=== PATIENT | female | born 1970 | race Caucasian/White ===

== ENCOUNTER → 2016-07-09 | Outpatient (CLI) | payer BC ==
--- NOTE | 2016-07-12 09:46 | MM ---
Reason for exam: screening (asymptomatic). Last mammogram was performed 1 year and 5 months ago. History: Took hormonal contraceptives for 16 years. Physical Findings: A clinical breast exam by your physician is recommended on an annual basis and results should be correlated with mammographic findings. MG 3D Screening Mammo W/Cad Bilateral CC and MLO view(s) were taken. Prior study comparison: January 24, 2015, bilateral MG 3d screening mammo w/cad. The breast tissue is heterogeneously dense. This may lower the sensitivity of mammography. There is no discrete abnormality. No significant changes when compared with prior studies. ASSESSMENT: Negative, BI-RAD 1 RECOMMENDATION: Routine screening mammogram of both breasts in 1 year.
== END | disposition home or self-care (01) ==
LOC: RADMAMWWP 16:47
PROVIDERS: ATTEND Family Medicine
DX: Z12.31 Encounter for screening mammogram for malignant neoplasm of breast (principal)
CPT/HCPCS: 77063; G0202

== ENCOUNTER → 2016-09-07 | Outpatient (CLI) | payer BC ==
--- NOTE | 2016-09-10 13:17 | CONS ---
Primary care physician is Dr. Chelo Pacheco A 45-year-old woman coming in because of loud snoring, waking up tired in the morning and frequent nocturnal arousals. She is suspected of having obstructive sleep apnea. She snores and she has been, at times told to stop breathing. She prefers to sleep on her side. She is a nose breather. She does not grind her teeth and she has occasional nocturnal heartburn. She has occasional nighttime sweating. She goes to bed around 8:00 p.m. and wakes up at 4:30 in the morning. On weekends she wakes up at 7:00 a.m. in the morning. She is averaging more than 6 hours of sleep every night. Her current [place] score is 15. Has not had any motor vehicle accidents because of feeling sleepy and tired. She has gained around 10 pounds over the past one year or so. No sleep paralysis, no hallucinations, no cataplexy. PAST MEDICAL HISTORY: Environmental allergies multiple including allergies to wheat, soy bailey, eggs, nuts, trees, grass, weeds, dust, cats, dogs, etc. She also has GERD and hiatal hernia. PAST SURGICAL HISTORY: Left eardrum reconstruction, removal of mole from the neck and uterine ablation. ALLERGIES: CODEINE. OUTPATIENT MEDICATION LIST: Protonix, Zantac, Flonase, magnesium, and Nandini. SOCIAL HISTORY: Nonsmoker. No history of alcohol, no history of IV drugs. She works for [employer] in [place]. FAMILY HISTORY: Positive for obstructive sleep apnea in her uncle, father and cousins. REVIEW OF SYSTEMS: 12 point review of systems was done and positive findings were all mentioned above in the history of present illness. BP is 142/97, pulse 92, respirations 16, temperature 97.6, saturation 975 on room air. Weight is 165, height is 5 foot 0. Neck size is 13-1/2 inches. GENERAL APPEARANCE: Calm, comfortable. Not in acute distress. HEENT: Mallampati class III. There are no goiters or neck masses. LUNGS: Clear to auscultation. HEART: Sounds are regular rate and rhythm. Normal S1, S2. ABDOMEN: Soft, nontender. No organomegaly. No direct tenderness or rebound tenderness. No guarding. EXTREMITIES: No edema, cyanosis or clubbing. IMPRESSION: 1. Obstructive sleep apnea clinically suspected, currently under investigation. 2. Chronic fatigue and hypersomnolence with [place] score of 15. 3. Borderline obesity with body mass index of 31.6. 4. Environmental allergies. 5. Gastroesophageal reflux disease, hiatal hernia. PLAN: 1. Encourage weight loss. 2. Sleep in a sidewise body position. 3. Continue treatment for symptoms of allergic rhinitis. 4. Proceed with sleep study looking for any significant sleep breathing disorder that may warrant further treatment. 5. Will continue to follow and make further recommendations accordingly. GRACE
== END | disposition home or self-care (01) ==
LOC: SLEEP 14:58
PROVIDERS: ATTEND Internal Medicine Critical Care Medicine
DX: G47.10 Hypersomnia, unspecified (principal); R53.82 Chronic fatigue, unspecified; E66.9 Obesity, unspecified; K21.9 Gastro-esophageal reflux disease without esophagitis; K44.9 Diaphragmatic hernia without obstruction or gangrene; T78.49XA Other allergy, initial encounter; Z68.31 Body mass index [BMI] 31.0-31.9, adult; Z79.899 Other long term (current) drug therapy; Z88.5 Allergy status to narcotic agent
CPT/HCPCS: 99211

== ENCOUNTER 2017-03-23 09:18 | Day surgery (SDC) | payer BC ==
[2017-03-18 14:26] VITALS: BMI 31.2
[~2017-03-23 09:18] MED LIST: LACTATED RINGERS 1,000 ML IV SCH
--- NOTE | 2017-03-23 10:42 | P.GSHP ---
History of Present Illness H&P Date: 03/23/17 CHIEF COMPLAINT: GERD HISTORY OF PRESENT ILLNESS: The patient is a 46-year-old female who presents reports gastroesophageal reflux disease. Upper endoscopy was offered for further evaluation and management. PAST MEDICAL HISTORY: Please see list. PAST SURGICAL HISTORY: Please see list. MEDICATIONS: Please see list. ALLERGIES: Please see list. SOCIAL HISTORY: No illicit drug use FAMILY HISTORY: No reports of Crohn disease or ulcerative colitis. REVIEW OF ORGAN SYSTEMS: CONSTITUTIONAL: No reports of fevers or chills. GI: Denies any blood in stools or constipation. PHYSICAL EXAM: VITAL SIGNS: Stable GENERAL: Well-developed and pleasant in no acute distress. HEENT: No scleral icterus. Extraocular movements grossly intact. Moist buccal mucosa. NECK: Supple without lymphadenopathy. CHEST: Unlabored respirations. Equal bilateral excursions. CARDIOVASCULAR: Regular rate and rhythm. Distal 2+ pulses. ABDOMEN: Soft, nondistended. MUSCULOSKELETAL: No clubbing, cyanosis, or edema. ASSESSMENT: 1. Gastroesophageal reflux disease PLAN: 1. Recommend proceeding with an upper endoscopy Past Medical History Past Medical History: GERD/Reflux Additional Past Medical History / Comment(s): ALLERGIES History of Any Multi-Drug Resistant Organisms: None Reported Past Surgical History: Uterine Ablation Additional Past Surgical History / Comment(s): LEFT EAR DRUM RECONSTRUCTED. EGD Past Anesthesia/Blood Transfusion Reactions: Family History of Problems w/ Anesthesia, Motion Sickness Additional Past Anesthesia/Blood Transfusion Reaction / Comment(s): SISTER PONV. Smoking Status: Never smoker - Past Family History Mother Family Medical History: No Reported History Medications and Allergies Home Medications Medication Instructions Recorded Confirmed Type Fexofenadine HCl [Fexofenadine HCl] 180 mg PO DAILY PRN 03/29/14 03/18/17 History Pantoprazole Sodium [Protonix] 40 mg PO QAM 03/29/14 03/18/17 History Ranitidine HCl 150 mg PO BID PRN 01/23/15 03/18/17 History Magnesium Oxide [Mag-Ox] 250 mg PO DAILY 03/18/17 03/18/17 History Allergies Allergy/AdvReac Type Severity Reaction Status Date / Time egg Allergy Unknown GAS, Verified 03/18/17 14:21 BLOATING peanut Allergy Unknown GAS, Verified 03/18/17 14:21 BLOATING soy Allergy Unknown GAS , Verified 03/18/17 14:21 BLOATING wheat Allergy Unknown GAS, Verified 03/18/17 14:21 BLOATING lactose Allergy GAS, Verified 03/18/17 14:21 BLOATING codeine AdvReac Unknown Nausea & Verified 03/18/17 14:21 Vomiting
[2017-03-23 11:20] VITALS: RESP 18; TEMP 97.8
[2017-03-23] MEDS ORDERED: LIDOCAINE 1% 20 ML VIAL (10MG/ML) FOR IV START INTRADERMA ONE (11:35)
[2017-03-23] MEDS ORDERED: LIDOCAINE 1% INJ 10MG/ML (20 ML MDV) ONE (12:00)
[2017-03-23] MEDS ORDERED: PROPOFOL 10 MG/ML 20 ML VIAL IV ONE (12:00)
--- NOTE | 2017-03-23 12:13 | P.PCN ---
Date of Procedure: 03/23/17 Description of Procedure: PREOPERATIVE DIAGNOSIS: Gastroesophageal reflux disease. POSTOPERATIVE DIAGNOSIS: Gastritis. Gastroesophageal reflux disease. Diaphragmatic hiatal hernia without obstruction. OPERATION: Esophagogastroduodenoscopy with biopsies along antrum. SURGEON: Acacia Foreman MD ANESTHESIA: MAC. INDICATIONS: The patient is a 46-year-old female who presents with a history of reflux disease. Benefits and risks of the procedure were described. Informed consent was obtained. DESCRIPTION: The patient was brought into the endoscopy suite and laid in the left lateral decubitus position. An Olympus gastroscope was passed along the posterior oropharynx down to the distal esophagus where the squamocolumnar junction was encountered at 32 cm from the incisors. The stomach was entered and no bile reflux was found. Additional findings are listed below. Biopsies with cold forceps were obtained of the antrum. The first through third portion of the duodenum was examined and unremarkable. Retroflexion of the scope confirmed Hill grade 4 lower esophageal valve. The squamocolumnar junction demostrated LA grade A erosive esophagitis. The stomach was desufflated. The patient tolerated the procedure well. FINDINGS: Squamocolumnar junction 32 cm from the incisors Diaphragmatic hiatus at 35 cm. Hiatal hernia 3 cm, type I. Hill grade 4 lower esophageal valve. LA grade A erosive esophagitis. No active duodenitis. Gastritis, superficial without bleeding. RECOMMENDATIONS: Further recommendations pending results of pathology report. Upper endoscopy as needed. Will benefit from antireflux surgical procedure Plan - Discharge Summary New Discharge Prescriptions: No Action Pantoprazole Sodium [Protonix] 40 mg PO QAM Fexofenadine HCl [Fexofenadine HCl] 180 mg PO DAILY PRN PRN Reason: Allergy Symptoms Ranitidine HCl 150 mg PO BID PRN PRN Reason: GERD Magnesium Oxide [Mag-Ox] 250 mg PO DAILY Fluticasone Nasal [place] [Flonase Nasal [place]] 1 spray NASAL HS Discharge Medication List Fexofenadine HCl [Fexofenadine HCl] 180 mg PO DAILY PRN 03/29/14 [History] Pantoprazole Sodium [Protonix] 40 mg PO QAM 03/29/14 [History] Ranitidine HCl 150 mg PO BID PRN 01/23/15 [History] Magnesium Oxide [Mag-Ox] 250 mg PO DAILY 03/18/17 [History] Fluticasone Nasal [place] [Flonase Nasal [place]] 1 spray NASAL HS 03/23/17 [History ]
[2017-03-23 12:46] VITALS: BP 123/84; PULSE 72
== END 2017-03-23 13:16 | disposition home or self-care (01) ==
LOC: ORWHC2ENDO 09:18
PROVIDERS: ATTEND Surgery Plastic and Reconstructive Surgery
DX: K29.30 Chronic superficial gastritis without bleeding (principal); B96.81 Helicobacter pylori [H. pylori] as the cause of diseases classified elsewhere; K22.10 Ulcer of esophagus without bleeding; K44.9 Diaphragmatic hernia without obstruction or gangrene; K21.9 Gastro-esophageal reflux disease without esophagitis; J45.909 Unspecified asthma, uncomplicated; Z79.899 Other long term (current) drug therapy; Z91.012 Allergy to eggs; Z91.011 Allergy to milk products; Z88.5 Allergy status to narcotic agent; Z91.010 Allergy to peanuts; Z91.018 Allergy to other foods
CPT/HCPCS: 81025; 88305; 88342; 43239; J2001; J2704

== ENCOUNTER → 2017-08-22 | Outpatient (CLI) | payer BC ==
--- NOTE | 2017-08-24 07:24 | MM ---
Reason for exam: screening (asymptomatic). Last mammogram was performed 1 year and 1 month ago. History: Took hormonal contraceptives for 16 years. Physical Findings: A clinical breast exam by your physician is recommended on an annual basis and results should be correlated with mammographic findings. MG 3D Screening Mammo W/Cad Bilateral CC and MLO view(s) were taken. Prior study comparison: July 09, 2016, bilateral MG 3d screening mammo w/cad. January 24, 2015, bilateral MG 3d screening mammo w/cad. The breast tissue is heterogeneously dense. This may lower the sensitivity of mammography. No suspicious abnormality. No significant changes when compared with prior studies. ASSESSMENT: Negative, BI-RAD 1 RECOMMENDATION: Routine screening mammogram of both breasts in 1 year.
== END | disposition home or self-care (01) ==
LOC: RADMAMWWP 15:34
PROVIDERS: ATTEND Obstetrics & Gynecology
DX: Z12.31 Encounter for screening mammogram for malignant neoplasm of breast (principal)
CPT/HCPCS: 77063; 77067

== ENCOUNTER → 2018-05-24 | Outpatient (CLI) | payer BC ==
--- NOTE | 2018-05-24 15:58 | US ---
EXAMINATION TYPE: US kidneys/renal and bladder DATE OF EXAM: 05/24/2018 COMPARISON: None CLINICAL HISTORY: R10.9 Left Flank Pain. EXAM MEASUREMENTS: Right Kidney: 9.5 x 4.1 x 4.0cm Left Kidney: 10.6 x 4.1 x 4.6 Right Kidney: No hydronephrosis or masses seen Left Kidney: No hydronephrosis or masses seen Bladder: wnl There is no evidence for hydronephrosis at this point in time. No nephrolithiasis is seen. No kal s are identified. The urinary bladder is anechoic. Bilateral ureteral jets are seen. Findings IMPRESSION: No evidence of hydronephrosis or nephrolithiasis.
== END | disposition home or self-care (01) ==
LOC: RADUSWWP 15:22
PROVIDERS: ATTEND Family Medicine
DX: R10.9 Unspecified abdominal pain (principal)
CPT/HCPCS: 76770

== ENCOUNTER → 2020-06-30 | Outpatient (CLI) | payer BC ==
--- NOTE | 2020-07-01 09:10 | MM ---
Reason for exam: screening (asymptomatic). Last mammogram was performed 2 years and 10 months ago. History: Took hormonal contraceptives for 16 years. Physical Findings: A clinical breast exam by your physician is recommended on an annual basis and results should be correlated with mammographic findings. MG 3D Screening Mammo W/Cad Bilateral CC and MLO view(s) were taken. Prior study comparison: August 22, 2017, bilateral MG 3d screening mammo w/cad. July 09, 2016, bilateral MG 3d screening mammo w/cad. The breast tissue is heterogeneously dense. This may lower the sensitivity of mammography. There is no discrete abnormality. ASSESSMENT: Negative, BI-RAD 1 RECOMMENDATION: Routine screening mammogram of both breasts in 1 year.
== END | disposition home or self-care (01) ==
LOC: RADMAMWWP 10:55
PROVIDERS: ATTEND Family Medicine
DX: Z12.31 Encounter for screening mammogram for malignant neoplasm of breast (principal)
CPT/HCPCS: 77063; 77067

== ENCOUNTER → 2020-07-08 | Outpatient (CLI) | payer BC ==
--- NOTE | 2020-07-08 13:42 | ECHOS ---
STRESS ECHOCARDIOGRAM LUMASON: N/A Vial INDICATIONS: Chest pain MEDICATIONS: BASELINE HEART RATE: 85 BASELINE BLOOD PRESSURE: 151/103 MAXIMUM HEART RATE: 168 MAXIMUM BLOOD PRESSURE: 207/100 85% MPHR: 146 100% MPHR: 172 METS: 10.3 MAXIMUM STAGE REACHED: 3 TOTAL EXERCISE TIME: 9 minutes CLINICAL INFORMATION: Baseline rhythm is a sinus mechanism, rate of 85, normal axis and intervals, poor R progression. Baseline blood pressure 151/103 mmHg. The patient exercised on Tl protocol for 9 minutes reaching peak rate 168 beats per minute which is equal to 98% maximum predicted heart rate. Peak blood pressure 207/100 mmHg. Test was terminated secondary to fatigue. There was no chest pain. Electrocardiograph monitoring revealed no evidence of diagnostic ischemic ST deviation. Baseline echocardiogram revealed normal wall motion. At peak exercise, there was normal wall motion augmentation with no hypokinesis or dyskinesis. CONCLUSION: 1. Average exercise tolerance with normal electrocardiograph response to exercise. 2. Normal stress echocardiogram with no evidence of stress-induced ischemia. MMODL / IJN: [id number] /
== END | disposition home or self-care (01) ==
LOC: RADNMMAIN 09:11
PROVIDERS: ATTEND Family Medicine
DX: R07.9 Chest pain, unspecified (principal)
CPT/HCPCS: 93351; Q9950

== ENCOUNTER 2021-08-05 06:30 | Day surgery (SDC) | payer BC ==
[2021-08-04 10:43] VITALS: BMI 34.2
[~2021-08-05 06:30] MED LIST changes: +LIDOCAINE 1% (10MG/ML) FOR IV START INTRADERMA PRN
[2021-08-05 06:51] VITALS: TEMP 97.9
[2021-08-05] MEDS ORDERED: PROPOFOL 10 MG/ML 20 ML VIAL IV ONE (07:46)
[2021-08-05] MEDS ORDERED: LIDOCAINE 2% INJ 20 MG/ML (2 ML VIAL) ONE (07:46)
--- NOTE | 2021-08-05 08:04 | P.PCN ---
Date of Procedure: 08/05/21 Procedure(s) Performed: Brief history: Patient is a pleasant 50 scheduled for an elective upper endoscopy as well as colonoscopy as a part of evaluation of evaluation of long-standing history of GERD and screening for colon cancer. She is currently maintained on Protonix 40 mg daily for almost 7 years. Procedure performed: Esophagogastroduodenoscopy with biopsy Colonoscopy with biopsy Preoperative diagnosis: Long-standing history of GERD Screening for colon cancer Anesthesia: MAC Procedure: After informed consent was obtained from the patient was brought into the endoscopy unit and IV sedation was administered by anesthesia under continuous monitoring. Initially upper endoscopy was done. The Olympus GF 160 video endoscope was inserted inserted into the mouth and esophagus intubated without any difficulty and was gradually advanced into the stomach and duodenum and carefully examined. The bulb and second part of the duodenum appeared normal. The scope was then withdrawn into the stomach adequately insufflated with air and upon careful examination the antrum had mild patchy areas of erythema in the prepyloric area which was biopsied. The body, cardia and fundus appeared normal. The scope was then withdrawn into the esophagus. The GE junction was located at 38 cm to the incisors. Very small sliding type hiatal hernia noted. It appeared regular with no erythema erosions or ulcerations. Rest of the esophagus appeared normal. Patient tolerated the procedure well. At this time the patient continued to remain sedation. Initial digital rectal examination was normal. Olympus CF 160 video colonoscope was then inserted into the rectum and gradually advanced to the cecum without any difficulty. Careful examination was performed as the scope was gradually being withdrawn. The prep was excellent. The cecum, ascending colon, transverse colon, descending colon, normal. In the sigmoid colon there was a 3 mm sessile polyp that was removed by cold biopsy. Rest of the sigmoid colon and rectum appeared normal. The sigmoid diverticulosis Retroflexion was performed in the rectum and no lesions were noted. Patient tolerated the procedure well. Impression: 1. Upper endoscopy revealed very small sliding type hiatal hernia and mild antral gastritis 2. Colonoscopy revealed a 3 mm sigmoid colon polyp status post cold biopsy and scattered sigmoid diverticulosis Recommendations: Findings of this examination were discussed with the patient as well as a family. She was advised to continue with Protonix 40 mg daily and continue to follow antireflux measures.. She was advised to follow with the biopsy shows. If the biopsies adenoma she can have a repeat colonoscopy in 5 years
[2021-08-05 08:10] VITALS: BP 120/81; PULSE 82; RESP 16
== END 2021-08-05 08:48 ==
LOC: ORWHC2ENDO 06:30
PROVIDERS: ATTEND Internal Medicine Gastroenterology
DX: K29.50 Unspecified chronic gastritis without bleeding (principal); K44.9 Diaphragmatic hernia without obstruction or gangrene; K57.30 Diverticulosis of large intestine without perforation or abscess without bleeding; B96.81 Helicobacter pylori [H. pylori] as the cause of diseases classified elsewhere
CPT/HCPCS: 45380; 43239; 81025; 88305; 88342; J2704; J2001

== ENCOUNTER → 2022-10-07 | Outpatient (CLI) | payer BC ==
--- NOTE | 2022-10-07 11:32 | P.SLEEP ---
History of Present Illness DATE: 10/07/2022 CONSULTATION/NEW PATIENT EVALUATION HISTORY OF PRESENT ILLNESS/SLEEP-WAKE EVALUATION: 51-year-old lady had been ev aluated in the sleep center for possible obstructive sleep apnea hypopnea syndrome. Patient had a home sleep apnea test 6 years ago which showed apnea- hypopnea index 3.5, but patient was not able to sleep well during the testing night at home, subsequently results could be false negative. SLEEP SCHEDULE: Usually sleep schedule to 78 PM until 4:30 AM on working days and from 89 PM to 8 AM on weekend. FALLING ASLEEP: Sometimes patient has problems with the falling asleep, has TV set in bedroom. DURING SLEEP: Patient sleeps in different positions including back side and stomach with loud snoring and multiple awakenings from sleep more than 5 times with one episode of nocturia. Positive history of gasping for air and grinding teeth. No history of hypnogogical hallucinations, sleep paralysis, or cataplexy. DURING THE DAY/WAKE STATE: In the morning patient wake up tired, has difficulties to pay attention, has problems with concentration. [place] sleepiness scale is increased to 12, which indicates sleepiness. Usually patient doesn't take naps. PAST MEDICAL HISTORY: Hypertension, ALLERGY, sinuses problems, essential thrombocythemia. PAST SURGICAL HISTORY: Left eardrum reconstruction. MEDICATIONS: Pantoprazole 40 mg once a day, losartan 25 mg once a day, Flonase 50 g, Nandini 180 mg once a day, melatonin 10 mg once a day, Montelucast 10 mg once a day. SOCIAL HISTORY: Negative for smoking, alcohol consumption occasional. FAMILY HISTORY: Hypertension, sleep apnea, cancer, diabetes, acid reflux. REVIEW OF SYSTEMS: Loud snoring, multiple awakenings from sleep, sleepiness during the day. No fevers. No double vision. No recent chest pain. No shortness of breath. No abdominal pain. No bleeding episodes. No blood in urine. No seizure episodes. PHYSICAL EXAMINATION: GENERAL: A pleasant patient without any distress. VITAL SIGNS: BP 160/95, HR 82, RR 18, weight 179.0 pounds, height 5 foot 0 inches, body mass index 34.7. HEENT: PERRLA, EOMI. Evaluation of oropharynx showed tongue protrudes midline, low position of soft palate Mallampati 4. NECK: Supple. No JVD. Thyroid is not palpable. 14.75 inches in circumference. LUNGS: Clear to percussion and to auscultation. Good air exchange. No wheezing or rhonchi. HEART: S1, S2 regular. No murmurs, gallops or rubs. ABDOMEN: Soft and nontender. Bowel sounds are present. No organomegaly appreciated. EXTREMITIES: No clubbing or cyanosis. LEAF STICKER: Awake, alert, and oriented x3. Cranial nerves 2 to 7 intact. There is no fasciculation or atrophy noted. No focal deficits observed. ASSESSMENT: 1. Loud snoring, multiple awakenings from sleep more than 5 times, extremely low position of soft palate Mallampati 4, retrognathia 2 mm, sleepiness with [place] Sleepiness Scale 12. Obstructive sleep apnea hypopnea syndrome 2. Difficulties to initiate sleep, psychophysiological insomnia. 3. Obesity BMI 34.7. 4. Essential thrombocythemia. Platelets count at the present time around 600,000 according to patient. 5 hypertension. 6 . Acid reflux. 7. Hyperlipidemia. 8. Status post left eardrum reconstruction. 9 . ALLERGY. 10. Restriction of nasal breathing. 11. History of sinuses problems. PLAN: 1. Home sleep apnea test several years ago was negative, patient was not able to sleep well during the test. Polysomnography for evaluation of patient's breathing during sleep. 2. CPAP/BiPAP titration if sleep study confirms obstructive sleep apnea- hypopnea syndrome. 3. Preferable position during sleep on the side. 4. No driving if patient feels any sleepiness. Patient is aware of civil and criminal liability for unsafe driving. 5. Sleep hygiene with regular sleep time for at least 7.5-8 hours. 6. Watching and losing weight. Thank you very much for referring this patient for consultation. Sincerely, Jonathan Rice MD, PhD, FAASM. Diplomat of [place] [employer], Sleep Medicine Board by [place] [employer] [employer] Cyber Operator of [facility] [place] Past Medical History Past Medical History: Asthma, GERD/Reflux, Hyperlipidemia, Hypertension, Pneu monia Additional Past Medical History / Comment(s): "pre hypertension", slight hiatal hernia, constipation/diarrhea, IBS, essential thrombocythemia, History of Any Multi-Drug Resistant Organisms: None Reported Past Surgical History: Uterine Ablation Additional Past Surgical History / Comment(s): LEFT EAR DRUM RECONSTRUCTED.pre cancer cells removed from cervix, left ear drum reinforced with cartiladge Past Anesthesia/Blood Transfusion Reactions: Family History of Problems w/ Anesthesia, Motion Sickness Additional Past Anesthesia/Blood Transfusion Reaction / Comment(s): SISTER PONV. Smoking Status: Never smoker - Past Family History Mother Family Medical History: No Reported History Medications and Allergies Home Medications Medication Instructions Recorded Confirmed Type Fexofenadine HCl 180 mg PO DAILY 03/29/14 08/04/21 History Pantoprazole Sodium [Protonix] 40 mg PO QAM 03/29/14 08/04/21 History Magnesium Oxide [Mag-Ox] 250 mg PO DAILY 03/18/17 08/04/21 History Fluticasone Nasal [place] [Flonase 1 spray NASAL HS 03/23/17 08/04/21 History Nasal [place]] Albuterol Inhaler [Ventolin Hfa 1 puff INHALATION DIRECTED PRN 08/04/21 08/04/21 History Inhaler] Aspirin [Adult Low Dose Aspirin EC] 81 mg PO DAILY 08/04/21 08/04/21 History Atorvastatin [Lipitor] 10 mg PO HS 08/04/21 08/05/21 History Azelastine HCl [Astepro] 2 spray NASAL BID 08/04/21 08/05/21 History Cholecalciferol [Vitamin D3 (125 125 mcg PO DAILY 08/04/21 08/04/21 History Mcg = 5000 Iu)] Losartan Potassium [Cozaar] 25 mg PO QAM 08/04/21 08/05/21 History Montelukast Sodium [Singulair] 10 mg PO HS 08/04/21 08/04/21 History Allergies Allergy/AdvReac Type Severity Reaction Status Date / Time egg Allergy Unknown GAS, Verified 08/04/21 10:32 BLOATING peanut Allergy Unknown GAS, Verified 08/04/21 10:32 BLOATING soy Allergy Unknown GAS , Verified 08/04/21 10:32 BLOATING wheat Allergy Unknown GAS, Verified 08/04/21 10:32 BLOATING lactose Allergy GAS, Verified 08/04/21 10:32 BLOATING codeine AdvReac Unknown Nausea & Verified 08/04/21 10:32 Vomiting Sleep Note - Sleep Note Sleep Note: Temperature: Pulse Rate: Respiratory Rate: Blood Pressure: SpO2: Height: Weight: BMI: Neck Circumference:
== END ==
LOC: 3 N SLEEP 10:42
PROVIDERS: ATTEND Internal Medicine
DX: G47.33 Obstructive sleep apnea (adult) (pediatric) (principal); E66.9 Obesity, unspecified; I10 Essential (primary) hypertension; E78.5 Hyperlipidemia, unspecified; K21.9 Gastro-esophageal reflux disease without esophagitis; D47.3 Essential (hemorrhagic) thrombocythemia; H72.92 Unspecified perforation of tympanic membrane, left ear; M26.19 Other specified anomalies of jaw-cranial base relationship; Z91.012 Allergy to eggs; Z88.5 Allergy status to narcotic agent; Z91.018 Allergy to other foods; Z91.010 Allergy to peanuts; Z79.899 Other long term (current) drug therapy; Z68.34 Body mass index [BMI] 34.0-34.9, adult
CPT/HCPCS: 99211

== ENCOUNTER → 2023-02-02 | Outpatient (CLI) | payer BC ==
--- NOTE | 2023-02-02 15:54 | P.PN ---
Subjective DATE: 02/02/2023 FOLLOW UP VISIT. Patient with obstructive sleep apnea hypopnea syndrome return to sleep center for follow-up visit. Recently patient had sleep study which documented obstructive sleep apnea hypopnea syndrome. Patient was initiated on PAP therapy and today is first visit after treatment was started. Patient was able to use PAP equipment every night for the whole night. The patient does not have significant problems with the mask, PAP pressure and humidification. [place] sleepiness scale is 9. I checked information from PAP unit. PAP unit pressure 5-13, average 7.6 cm H2O. Usage is 100% and 90 % for more then 4 hours, average 6 hours per night. Leak is 1.4 l/m, which is in acceptable range. Apnea Hypopnea Index is 0.7, which is normal. MEDICATIONS:1. Pantoprazole 40 mg once a day 2. Losartan 25 mg once a day 3. Flonase 4. Nandini 5. Melatonin 10 mg once a day 6. Montelukast 10 mg once a day During physical exam: GENERAL: A pleasant patient without any distress. VITAL SIGNS: BP 149/94, HR 78, RR 12 , weight 186.0, temperature 98.0, oxygen saturation at room air 97% . HEENT: PERRLA, EOMI.low position of soft palate, Mallapati 4 . NECK: Supple. No JVD. LUNGS: Clear to percussion and to auscultation. Good air exchange. No wheezing or rhonchi. HEART: S1, S2 regular. ABDOMEN: Soft and nontender.[] EXTREMITIES: No clubbing or cyanosis. MANAGER CONTRACTING: Awake, alert, and oriented x3. No focal deficit. Impressions: 1. Obstructive sleep apnea-hypopnea syndrome. Patient demonstrated great compliance with treatment, benefiting from treatment. 2. Obesity. 3. History of essential thrombocytopenia. 4. Hypertension. 5. Acid reflux. 6. Hyperlipidemia. 7. Status post left ear dram reconstruction. 8. ALLERGY. 9. Restriction of nasal breathing and history of sinus problems. Plan: 1. Continue using PAP equipment every night for the whole night. 2. To change air filter at least 1-2 times per month. 3. PAP unit should stay lower then position of the head. 4. Advised patient to remove all remaining water from humidifier canister daily and make it dry after each usage. Refill canister with fresh distilled water before each usage. 5. Sleep hygiene with regular time in bed for at least 8 hours. 6. Precautions related to driving. No driving if feel any sleepiness. 7. I will maintain prescription for PAP supplies including mask, tube, filters. 8. Follow up visit in 6 months or earlier if patient has any problems. 9. Watching and losing weight. Thank you very much for allowing me to participate in the management of your patient. Jonathan Rice MD, PhD, FAASM. Diplomat of [place] [employer], Sleep Medicine Board by [place] [employer] Real Estate Subagent of [facility] [place]
== END ==
LOC: 3 N SLEEP 14:43
PROVIDERS: ATTEND Internal Medicine
DX: G47.33 Obstructive sleep apnea (adult) (pediatric) (principal); E66.9 Obesity, unspecified; D69.3 Immune thrombocytopenic purpura; I10 Essential (primary) hypertension; K21.9 Gastro-esophageal reflux disease without esophagitis; E78.5 Hyperlipidemia, unspecified; Z79.890 Hormone replacement therapy; Z91.012 Allergy to eggs; Z91.010 Allergy to peanuts; Z91.018 Allergy to other foods; Z91.011 Allergy to milk products; Z88.5 Allergy status to narcotic agent; Z79.82 Long term (current) use of aspirin
CPT/HCPCS: 99212

== ENCOUNTER → 2023-07-11 | Outpatient (CLI) | payer BC ==
[2023-07-11 22:47] LABS: Blood Urea Nitrogen 12.8 mg/dL (9.0-27.0); Carbon Dioxide 21.3 mmol/L (21.6-31.8); Chloride 101 mmol/L (96-109); Potassium 4.5 mmol/L (3.5-5.5); Sodium 136 mmol/L (135-145)
[2023-07-11 22:54] LABS: HCT 43.3 % (37.2-46.3); HGB 14.2 g/dL (12.0-15.0); MCH 28.1 pg (27.0-32.0); MCHC 32.8 g/dL (32.0-37.0); MCV 85.6 FL (80.0-97.0); Mean Platelet Volume 9.5 FL (9.5-12.2); Platelet Count 884 X 10*3/uL (140-440); RBC 5.06 X 10*6/uL (4.10-5.20); RDW 14.1 % (11.5-14.5); WBC 8.01 X 10*3/uL (4.50-10.00)
[2023-07-11 22:55] LABS: Basophils # (A) 0.06 X 10*3/uL (0.00-0.10); Basophils % (A) 0.7 %; Eosinophils # (A) 0.35 X 10*3/uL (0.04-0.35); Eosinophils % (A) 4.4 %; Lymphocytes # (A) 1.65 X 10*3/uL (0.90-5.00); Lymphocytes % (A) 20.6 %; Monocytes # (A) 0.59 X 10*3/uL (0.20-1.00); Monocytes % (A) 7.4 %; NRBC Per 100 WBC 0 X 10*3/uL (0.00-0.01); Neutrophils # (A) 5.33 X 10*3/uL (1.80-7.70); Neutrophils % (A) 66.5 %; RBC Morphology Normal (Normal)
== END | disposition home or self-care (01) ==
LOC: LABPAT 14:26
PROVIDERS: ATTEND Obstetrics & Gynecology Obstetrics
DX: Z01.818 Encounter for other preprocedural examination (principal); I10 Essential (primary) hypertension
CPT/HCPCS: 80051; 82565; 84520; 85025; 86850; 86900; 86901; 87086; 93005

== ENCOUNTER 2023-07-21 08:35 | Day surgery (SDC) | payer BC ==
[2023-07-15 16:08] VITALS: BMI 34.5
[~2023-07-21 08:35] MED LIST changes: +HYDROmorphone 0.5 MG/0.5 ML SYRINGE IVP PRN; -LACTATED RINGERS 1,000 ML IV SCH; -LIDOCAINE 1% (10MG/ML) FOR IV START INTRADERMA PRN
[2023-07-21] MEDS: LACTATED RINGERS 1,000 ML IV SCH (09:29)
[2023-07-21] MEDS: SCOPOLAMINE 1 MG/72 HR PATCH TRANSDERM ONE (09:35)
[2023-07-21] MEDS: ONDANSETRON 4 MG/2 ML VIAL IVP ONE (09:35)
[2023-07-21] MEDS: MIDAZOLAM 2 MG/2 ML VIAL IVP ONE (09:39)
--- NOTE | 2023-07-21 09:48 | P.HPOB ---
History of Present Illness H&P Date: 07/21/23 Chief Complaint: Enlarged uterus, uterine fibroids, dysmenorrhea s/p EA This is a 52-year-old female that presents for definitive treatment for known dysmenorrhea status post endometrial ablation. Patient had an ultrasound revealing an enlarged uterus at 11 cm. Normal ovaries with follicles are appreciated. Patient states the pain is noted in the midline and stable. Patient notes the pain to be cyclic in nature. CHANNEL MANAGER history 0 Review of Systems Constitutional: Denies chills, Denies fatigue, Denies fever Ears, nose, mouth and throat: Denies headache Cardiovascular: Denies leg edema Respiratory: Denies dyspnea Gastrointestinal: Denies nausea, Denies vomiting Genitourinary: Reports as per HPI, Reports dysmenorrhea, Denies Menstruation: Reports menses variable Past Medical History Past Medical History: Asthma, Blood Disorder, GERD/Reflux, Hearing Disorder / Deafness, Hyperlipidemia, Hypertension, Pneumonia, Sleep Apnea/CPAP/BIPAP Additional Past Medical History / Comment(s): Slight hiatal hernia, hard of hearing in left ear, constipation/diarrhea, IBS, "bone marrow disease causing high platelets - essential thrombocythemia", CPAP use. History of Any Multi-Drug Resistant Organisms: None Reported Past Surgical History: Ear Surgery, Uterine Ablation Additional Past Surgical History / Comment(s): LEFT EAR DRUM RECONSTRUCTED, pre cancer cells removed from cervix, left ear drum reinforced with cartilage. Past Anesthesia/Blood Transfusion Reactions: Motion Sickness Additional Past Anesthesia/Blood Transfusion Reaction / Comment(s): SISTER PONV. Smoking Status: Never smoker - Past Family History Mother Family Medical History: No Reported History Medications and Allergies Home Medications Medication Instructions Recorded Confirmed Type Fexofenadine HCl 180 mg PO DAILY 03/29/14 07/21/23 History Pantoprazole Sodium [Protonix] 40 mg PO QAM 03/29/14 07/21/23 History Magnesium Oxide [Mag-Ox] 250 mg PO DAILY 03/18/17 07/15/23 History Fluticasone Nasal [place] [Flonase 1 spray NASAL HS 03/23/17 07/21/23 History Nasal [place]] Albuterol Inhaler [Ventolin Hfa 1 puff INHALATION DIRECTED PRN 08/04/21 07/21/23 History Inhaler] Aspirin [Adult Low Dose Aspirin EC] 81 mg PO DAILY 08/04/21 07/15/23 History Atorvastatin [Lipitor] 10 mg PO HS 08/04/21 07/21/23 History Azelastine HCl [Astepro] 2 spray NASAL BID 08/04/21 07/21/23 History Cholecalciferol [Vitamin D3 (125 125 mcg PO DAILY 08/04/21 07/15/23 History Mcg = 5000 Iu)] Montelukast Sodium [Singulair] 10 mg PO HS 08/04/21 07/21/23 History Losartan [Cozaar] 50 mg PO QAM 07/15/23 07/21/23 History modafiniL [Provigil] 100 mg PO DIRECTED 07/15/23 07/21/23 History Allergies Allergy/AdvReac Type Severity Reaction Status Date / Time codeine Allergy Unknown Nausea & Verified 07/21/23 09:05 Vomiting egg AdvReac Unknown GAS, Verified 07/21/23 09:05 BLOATING lactose AdvReac Unknown GAS, Verified 07/21/23 09:05 BLOATING peanut AdvReac Unknown GAS, Verified 07/21/23 09:05 BLOATING soy AdvReac Unknown GAS , Verified 07/21/23 09:05 BLOATING wheat AdvReac Unknown GAS, Verified 07/21/23 09:05 BLOATING Exam Osteopathic Statement: *. No significant issues noted on an osteopathic structural exam other than those noted in the History and Physical/Consult. Vital Signs Temp Pulse Resp BP Pulse Ox 07/21/23 09:30 97.8 F 83 18 156/88 96 Intake and Output 07/20/23 07/21/23 07/21/23 22:59 06:59 14:59 Other: Weight 80.6 kg Targeted physical exam is performed this date General is a well-nourished well- developed non female in no acute distress, breathing is noted to be nonlabored, heart has a regular rate and rhythm, abdomen is soft and nontender, uterus is noted to be slightly enlarged and mobile no adnexal masses are a ppreciated. On external genital exam external genitalia is noted to be normal vaginal Koza is noted to be pink and well-rugated the cervix is noted to be without lesion, uterus is noted to be slightly enlarged and mobile, no adnexal masses are appreciated. Assessment and Plan (1) Enlarged uterus Current Visit: Yes Status: Acute Code(s): N85.2 - HYPERTROPHY OF UTERUS SNOMED Code(s): 687701500 (2) Dysmenorrhea Narrative/Plan: Consistent with post ablation syndrome Current Visit: No Status: Acute Code(s): N94.6 - DYSMENORRHEA, UNSPECIFIED SNOMED Code(s): 365077176 Plan: 52-year-old female presents for definitive treatment with robotic assisted vaginal hysterectomy, bilateral salpingectomy, diagnostic cystoscopy. Patient has a history of endometrial ablation with continuous cyclic pain. Patient desires definitive treatment. Risks were reviewed with the patient including but not limited to infection, bleeding, damage to bladder, bowel, ureteric injury. Patient states understanding of these risks and wishes to proceed.
[2023-07-21] MEDS: BUPIVACAINE (PF) 0.25% 30 ML VIAL SQ ONE ×2 (10:49→11:37)
[2023-07-21] MEDS ORDERED: ACETAMINOPHEN IV (For NPO) 1,000 MG in EMPTY BAG 1 BAG IVPB ONE (12:36)
[2023-07-21] MEDS ORDERED: Acetaminophen-Codeine 300-30mg TAB PO PRN ×2 (12:36)
[2023-07-21] MEDS ORDERED: SIMETHICONE 80 MG CHEWABLE PO PRN (12:36)
--- NOTE | 2023-07-21 12:48 | P.OP ---
Date of Procedure: 07/21/23 Preoperative Diagnosis: Enlarged uterus, dysmenorrhea consistent with post ablation syndrome, pelvic pain Postoperative Diagnosis: Same Procedure(s) Performed: Robotic assisted vaginal hysterectomy, bilateral salpingectomy, diagnostic cystoscopy Anesthesia: SAFIA Surgeon: Dory Goldberg Counseling Department Chair #1: Sunny Birmingham Estimated Blood Loss (ml): 40 IV fluids (ml): 1,000 Urine output (ml): 140 Pathology: other (Uterus cervix bilateral fallopian tubes) Condition: stable Disposition: PACU Indications for Procedure: 52-year-old female with history of endometrial ablation done years ago. Patient is noticing increasing cyclic pain, patient underwent ultrasound evaluation of the pelvis revealing an enlarged uterus globular nature. Patient desired definitive treatment for post ablation syndrome., Enlarged uterus. Operative Findings: Enlarged globular uterus normal ovaries bilaterally, on cystoscopy bladder mucosa was noted to be normal intact no defects were appreciated both ureteral orifices were noted to be spilling clear yellow urine. Description of Procedure: Patient was taken back to the operating suite where general anesthesia was obtained without difficulty by the anesthesia department. She was prepped and draped in the normal sterile fashion the dorsolithotomy position. A Faria catheter was placed under sterile technique. A weighted speculum is placed in the posterior vaginal vault the antilipid the cervix was visualized and grasped with a single-tooth tenaculum. The endocervical canal was then serially dilated. A [employer] uterine manipulator was advanced into the uterus as a means to manipulate the uterus throughout the procedure. The cervical cap was then placed snugly against the cervix and all instruments were removed from the patient's vaginal vault. Attention then turned to the patient's abdomen where approximately 2 fingerbreadths above the umbilicus a small skin incision is made. Through this incision the Veress needle was placed. Once the Veress needle was deemed to be in the appropriate position with a drop of CO2 pressure with the insufflation of CO2 gas CO2 insufflation was allowed to occur. Approximately 3 L of gas were used to obtain pneumoperitoneum. At this time an 8 mm trocar and sleeve with the laparoscope in place was placed through the skin incision and toward the pneumoperitoneum. The above-noted findings were visualized. The additional port sites were then placed 10 cm lateral and 3 cm inferior to midline port these are 8 mm ports and placed under direct visualization. In the left upper quadrant a 12 mm skin incision is with a scalpel and a 12 mm trocar and sleeve is placed under direct visualization. Attention then turned to the patient's left fallopian tube which was elevated coagulated and transected to the utero-ovarian ligament. The utero-ovarian ligament was coagulated distally and proximall and divided. Hemostasis was appreciated. The round ligament was coagulated distally and proximally and divided. The bladder flap from the left was then created using sharp and blunt dissection. Good visualization of the bladder was noted and the Faria catheter was draining clear yellow urine. Attention then turned the patient's right fallopian tube which was elevated and the mesosalpinx was coagulated and transected. The utero-ovarian ligament was coagulated transected and hemostasis was noted. The round ligament was coagulated distally and proximally and divided. The bladder flap from the right was then created using sharp and blunt dissection. The ascending branch of the uterine artery on the right was visualized coagulated and transected any other points of bleeding were made hemostatic with cautery. This was then repeated on the opposite side. At this time a Ray-Jeny was placed into the abdomen to further dissect the bladder away from the operating field. The Ray-Jeny was then removed. At this point the only remaining attachment was a vaginal attachment therefore colpotomy incision was made in a circumferential fashion. The uterus bilateral fallopian tubes and cervix were delivered through the vaginal opening. The pelvis was then copi ously irrigated and the vaginal cuff was then closed with 0 Vicryl in a [id number] fashion. Approximately 4 sutures were used to obtain complete closure. Hemostasis was noted after closure of the vaginal cuff. Both ureters were noted to be normal in nature upon inspection the vaginal cuff appeared hemostatic and all instruments were removed from the patient's abdomen the da Mack[place] was undocked in the usual fashion. Attention then turned to the patient's Faria catheter which was noted to be draining clear yellow urine. The Faria catheter was removed, clear urine was noted in the catheter. The cystoscope was placed through the urethra and toward the bladder bladder bubble was noted, the ureteral orifices were noted to be spilling clear yellow urine from both orifices. The Faria catheter was replaced. Attention was then turned to the patient's abdomen and the skin incisions were closed with 4-0 Vicryl in a subcuticular fashion. Steri-Strips and sterile dressings were applied. All counts were to be correct x 2. Patient tolerated procedure well and was taken to recovery awake in stable condition.
[2023-07-21] MEDS: ONDANSETRON 4 MG/2 ML VIAL IVP PRN (13:53)
[2023-07-21] MEDS: DEXAMETHASONE SOD PHOSPHATE 4 MG/ML 1 ML VIAL IV ONE (13:54)
[2023-07-21] MEDS: diphenhydrAMINE 50 MG/ML 1 ML VIAL IVP PRN (15:01)
--- NOTE | 2023-07-21 18:17 | P.ANPRN ---
Procedure Note - Anesthesia - Epidural/Spinal Spinal Time Out Performed: Yes Date of Procedure: 07/21/23 Procedure Start Time: :40 Procedure Stop Time: 09:45 Location of Patient: PreOp Indication: Acute Post-Operative Pain, Analgesia, Requested by Surgeon Sedation Type: Sedate with meaningful contact maintained Preparation: Sterile Prep Position: Sitting Catheter: None Needle Guage: 25 Injectate: 300 g of Astramorph, and 25 g of fentanyl Narrative: At L4-L5 interspinous space. Blood Aspirated: No Pain Paresthesia on Injection Noted: No Events: Uneventful and Well Tolerated
[2023-07-21] MEDS ORDERED: diphenhydrAMINE 50 MG/ML 1 ML VIAL IVP PRN (18:23)
[2023-07-21] MEDS ORDERED: NALOXONE 0.4 MG/ML 1 ML VIAL IV PRN (18:23)
[2023-07-21] MEDS ORDERED: ONDANSETRON 4 MG/2 ML VIAL IVP PRN (18:23)
[2023-07-21] MEDS: MONTELUKAST 10 MG TAB PO SCH (21:23)
[2023-07-21] MEDS: SENNOSIDES-DOCUSATE SODIUM 1 EACH TAB PO SCH (21:41)
[2023-07-22] MEDS: IBUPROFEN 600 MG TAB PO PRN (02:33)
[2023-07-22 05:23] VITALS: BP 102/64; PULSE 86; TEMP 98.8
[2023-07-22] MEDS: ACETAMINOPHEN TAB 325 MG TAB PO PRN (07:59)
[2023-07-22 08:40] LABS: Basophils % (A) 0 %; Eosinophils # (A) 0.1 k/uL (0-0.7); Eosinophils % (A) 1 %; HCT 44.6 % (34.0-46.0); HGB 14.2 gm/dL (11.4-16.0); Lymphocytes # (A) 1.2 k/uL (1.0-4.8); Lymphocytes % (A) 8 %; MCH 28.6 pg (25.0-35.0); MCHC 31.8 g/dL (31.0-37.0); MCV 90.1 fL (80.0-100.0); Mean Platelet Volume 7.7; Monocytes # (A) 0.6 k/uL (0-1.0); Monocytes % (A) 4 %; Neutrophils # (A) 12.2 k/uL (1.3-7.7); Neutrophils % (A) 85 %; Platelet Count 786 k/uL (150-450); RBC 4.95 m/uL (3.80-5.40); WBC 14.3 k/uL (3.8-10.6)
--- NOTE | 2023-07-22 10:11 | P.PN ---
Progress Note - Text Progress Note Date: 07/22/23 is a 52-year-old female had a history of postop day 1 , Robotic assisted vaginal hysterectomy, bilateral salpingectomy, diagnostic cystoscopy undergeneral anesthesia. Spinal analgesia with Astramorph 300 g for postop painas per surgeon's request. Today patient is comfortable sitting in her bed. Today patient rated her pain level 2 out of 10 in severity. Denied any fever, drowsiness, confusion. Denied any weakness, tingling sensation in her lower extremities. Denied any bowel or bladder problems. Moving all extremities without any difficulty. Able to walk without any difficulties. Vitals: Hemodynamically stable Continue oral pain medication as per primary team.
--- NOTE | 2023-07-22 10:19 | P.DS ---
Providers Date of admission: 07/21/2023 Expected date of discharge: 07/22/23 Attending physician: Dory Goldberg Primary care physician: Say Muller - Discharge Diagnosis(es) (1) Enlarged uterus Current Visit: Yes Status: Acute (2) Dysmenorrhea Current Visit: No Status: Acute (3) S/P hysterectomy Current Visit: Yes Status: Acute Hospital Course: 52-year-old female that presented to the hospital yesterday for scheduled robotic assisted hysterectomy, bilateral salpingectomy, diagnostic cystoscopy. Patient has a history of an endometrial ablation for which she started having cyclic pelvic pain. Pain was consistent with post ablation syndrome. Patient wished definitive treatment with hysterectomy. For full details in this patient please the dictated history and physical. Patient was taken back to the op erating suite where surgery was performed without difficulty. For full details of the surgery please see the dictated operative report. Patient's postoperative course has been complicated by nausea and vomiting through the night, this has resolved this morning. Patient was able to eat breakfast and states her nausea has been well-controlled since 11 PM. Faria catheter was removed, she has had a spontaneous void. She is ambulating without difficulty and states her pain is well-controlled with oral ibuprofen. She denies vaginal bleeding. She notes positive flatus. She would like discharge home later today. Patient Condition at Discharge: Good Plan - Discharge Summary Discharge Rx Participant: No New Discharge Prescriptions: No Action Pantoprazole Sodium [Protonix] 40 mg PO QAM Fexofenadine HCl 180 mg PO DAILY Magnesium Oxide [Mag-Ox] 250 mg PO DAILY Fluticasone Nasal [place] [Flonase Nasal [place]] 1 spray NASAL HS Montelukast Sodium [Singulair] 10 mg PO HS Albuterol Inhaler [Ventolin Hfa Inhaler] 1 puff INHALATION DIRECTED PRN PRN Reason: Shortness Of Breath modafiniL [Provigil] 100 mg PO DIRECTED Azelastine HCl [Astepro] 2 spray NASAL BID Cholecalciferol [Vitamin D3 (125 Mcg = 5000 Iu)] 125 mcg PO DAILY Atorvastatin [Lipitor] 10 mg PO HS Aspirin [Adult Low Dose Aspirin EC] 81 mg PO DAILY Losartan [Cozaar] 50 mg PO QAM Discharge Medication List Fexofenadine HCl 180 mg PO DAILY 03/29/14 [History] Pantoprazole Sodium [Protonix] 40 mg PO QAM 03/29/14 [History] Magnesium Oxide [Mag-Ox] 250 mg PO DAILY 03/18/17 [History] Fluticasone Nasal [place] [Flonase Nasal [place]] 1 spray NASAL HS 03/23/17 [History] Albuterol Inhaler [Ventolin Hfa Inhaler] 1 puff INHALATION DIRECTED PRN 08/04/21 [History] Aspirin [Adult Low Dose Aspirin EC] 81 mg PO DAILY 08/04/21 [History] Atorvastatin [Lipitor] 10 mg PO HS 08/04/21 [History] Azelastine HCl [Astepro] 2 spray NASAL BID 08/04/21 [History] Cholecalciferol [Vitamin D3 (125 Mcg = 5000 Iu)] 125 mcg PO DAILY 08/04/21 [History] Montelukast Sodium [Singulair] 10 mg PO HS 08/04/21 [History] Losartan [Cozaar] 50 mg PO QAM 07/15/23 [History] modafiniL [Provigil] 100 mg PO DIRECTED 07/15/23 [History] Follow up Appointment(s)/Referral(s): Dory Goldberg DO [Doctor of Osteopathic Medicine] - 2 Weeks Patient Instructions/Handouts: Laparoscopic Hysterectomy (DC), Laparoscopic Hysterectomy (GEN) Activity/Diet/Wound Care/Special Instructions: No intercourse, tampons or douching. No heavy lifting greater than a gallon of milk. No driving for two weeks. Call with any fever, shakes or chills, with any pain not alleviated by over the counter meds, or with any quesions or concerns. [id number] ibuprofen 600 mg or 3 tablets every 6 hours as needed for pain. Discharge Disposition: HOME SELF-CARE
[2023-07-22] MEDS ORDERED: ACETAMINOPHEN TAB 325 MG TAB PO PRN (12:38)
[2023-07-22 12:57] VITALS: RESP 18
== END 2023-07-22 13:20 | disposition home or self-care (01) ==
LOC: OR 08:35 → 4FBP 11:37 → OR 07-22 13:20
PROVIDERS: ATTEND Obstetrics & Gynecology Obstetrics
DX: N72 Inflammatory disease of cervix uteri (principal); N80.03 Adenomyosis of the uterus; J45.909 Unspecified asthma, uncomplicated; K21.9 Gastro-esophageal reflux disease without esophagitis; I10 Essential (primary) hypertension; E78.5 Hyperlipidemia, unspecified; Z98.890 Other specified postprocedural states; Z79.51 Long term (current) use of inhaled steroids; Z79.899 Other long term (current) drug therapy; Z79.82 Long term (current) use of aspirin; Z88.5 Allergy status to narcotic agent
CPT/HCPCS: 58552; S2900; 81025; 85025; 88309

== ENCOUNTER → 2023-08-18 | Outpatient (CLI) | payer BC ==
--- NOTE | 2023-08-18 21:26 | MM ---
Reason for Exam: Screening (asymptomatic). Last mammogram was performed 3 year(s) and 2 month(s) ago. Patient History: Menarche at age 15. Patient has no children. Patient used Hormonal Contraceptives for 16 years. Risk Values: Kerri 5 year model risk: 1.0%. NCI Lifetime model risk: 8.9%. Prior Study Comparison: 07/09/2016 Bilateral Screening Mammogram, [facility]. 08/22/2017 Bilateral Screening Mammogram, [facility]. 06/30/2020 Bilateral Screening Mammogram, [facility]. Tissue Density: There are scattered areas of fibroglandular density. Findings: Analyzed By CAD. There is no suspicious group of microcalcifications or new suspicious mass in either breast. Overall Assessment: Negative, BI-RAD 1 Management: Screening Mammogram of both breasts in 1 year. . Patient should continue monthly self-breast exams. A clinical breast exam by your physician is recommended on an annual basis. This exam should not preclude additional follow-up of suspicious palpable abnormalities. Note on Kerri scores and lifetime risk: 1. A Kerri score greater than 3% is considered moderate risk. If this is the case, consider specialist referral to assess eligibility for a risk reducing agent. 2. If overall lifetime risk for the development of breast cancer is 20% or higher, the patient may qualify for future screening with alternating mammogram and breast MRI. Electronically signed and approved by: Hardy La M.D. Radiologist
== END | disposition home or self-care (01) ==
LOC: RADMAMWWP 14:17
PROVIDERS: ATTEND Family Medicine
DX: Z12.31 Encounter for screening mammogram for malignant neoplasm of breast (principal)
CPT/HCPCS: 77063; 77067

== ENCOUNTER → 2023-08-24 | Outpatient (CLI) | payer BC ==
[2023-08-24 16:01] VITALS: BP 144/98; PULSE 92; RESP 16; TEMP 98.9
--- NOTE | 2023-08-24 16:14 | P.PROGSL ---
Subjective DATE: 08/24/2023 FOLLOW UP VISIT. Patient with obstructive sleep apnea hypopnea syndrome return to sleep center for follow-up visit. Information from previous visit have been reviewed. Patient is using PAP equipment every night for the whole night, getting PAP supplies in time. The patient does not have significant problems with the mask, PAP unit and humidification. [place] sleepiness scale is slightly increased to 11. I checked information from PAP unit. PAP unit pressure 5-13, average 7.9 cm H2O. Usage is 100% for more then 4 hours, average 8.8 hours per night. Leak is 5.4 l/m, which is in acceptable range. Apnea Hypopnea Index is 0.9, which is normal. MEDICATIONS: Please see below During physical exam: GENERAL: A pleasant patient without any distress. VITAL SIGNS: Please see below. HEENT: PERRLA, EOMI.low position of soft palate, Mallapati 4 . NECK: Supple. No JVD. LUNGS: Clear to percussion and to auscultation. Good air exchange. No wheezing or rhonchi. HEART: S1, S2 regular. ABDOMEN: Soft and nontender. Slightly obese EXTREMITIES: No clubbing or cyanosis. BENCH PATTERNMAKER METAL: Awake, alert, and oriented x3. No focal deficit. Impressions: 1. Obstructive sleep apnea-hypopnea syndrome. Patient demonstrated great compliance with treatment, benefiting from treatment. 2. Obesity, BMI 34.7, patient lost 5 pounds comparing with previous visit. 3. Hypertension. 4. History of essential thrombocytopenia. 5. Hyperlipidemia. 6. Acid reflux. 7. Allergy. 8. Restriction of nasal breathing and history of sinuses problems. 9. Status post left eardrum reconstruction. Plan: 1. Continue using PAP equipment every night for the whole night. 2. To change air filter at least 1-2 times per month. 3. PAP unit should stay lower then position of the head. 4. Advised patient to remove all remaining water from humidifier canister daily and make it dry after each usage. Refill canister with fresh distilled water before each usage. 5. Sleep hygiene with regular time in bed for at least 8 hours. 6. Precautions related to driving. No driving if feel any sleepiness. 7. I will maintain prescription for PAP supplies including mask, tube, filters. 8. Follow up visit in 6 months or earlier if patient has any problems. 9. Watching and continue losing weight. Thank you very much for allowing me to participate in the management of your patient. Jonathan Rice MD, PhD, FAASM. Diplomat of [place] [employer], Sleep Medicine Board by [place] [employer] President + Publisher of [facility] [place] Objective - Vital Signs Vital Signs: Vital Signs Temp 98.9 F 08/24/23 16:00 Pulse 92 08/24/23 16:00 Resp 16 08/24/23 16:00 BP 144/98 08/24/23 16:00 Pulse Ox 95 08/24/23 16:00 FiO2 Intake & Output 08/23/23 08/24/23 08/24/23 18:59 06:59 18:59 Weight 82.1 kg Home Medications: Home Medications Medication Instructions Recorded Confirmed Type Fexofenadine HCl 180 mg PO DAILY 03/29/14 07/21/23 History Pantoprazole Sodium [Protonix] 40 mg PO QAM 03/29/14 08/24/23 History Magnesium Oxide [Mag-Ox] 250 mg PO DAILY 03/18/17 07/15/23 History Fluticasone Nasal [place] [Flonase 1 spray NASAL HS 03/23/17 08/24/23 History Nasal [place]] Albuterol Inhaler [Ventolin Hfa 1 puff INHALATION DIRECTED PRN 08/04/21 07/21/23 History Inhaler] Aspirin [Adult Low Dose Aspirin EC] 81 mg PO DAILY 08/04/21 07/15/23 History Atorvastatin [Lipitor] 10 mg PO HS 08/04/21 07/21/23 History Azelastine HCl [Astepro] 2 spray NASAL BID 08/04/21 08/24/23 History Cholecalciferol [Vitamin D3 (125 125 mcg PO DAILY 08/04/21 07/15/23 History Mcg = 5000 Iu)] Montelukast Sodium [Singulair] 10 mg PO HS 08/04/21 08/24/23 History Losartan [Cozaar] 50 mg PO QAM 07/15/23 08/24/23 History modafiniL [Provigil] 100 mg PO DIRECTED 07/15/23 08/24/23 History
== END ==
LOC: 3 N SLEEP 15:47
PROVIDERS: ATTEND Internal Medicine
DX: G47.33 Obstructive sleep apnea (adult) (pediatric) (principal); E66.9 Obesity, unspecified; I10 Essential (primary) hypertension; E78.5 Hyperlipidemia, unspecified; K21.9 Gastro-esophageal reflux disease without esophagitis; Z99.89 Dependence on other enabling machines and devices; Z87.09 Personal history of other diseases of the respiratory system; Z96.22 Myringotomy tube(s) status; Z68.34 Body mass index [BMI] 34.0-34.9, adult; Z86.2 Personal history of diseases of the blood and blood-forming organs and certain disorders involving the immune mechanism; Z88.5 Allergy status to narcotic agent; Z91.012 Allergy to eggs; Z91.011 Allergy to milk products; Z91.018 Allergy to other foods; Z91.010 Allergy to peanuts; Z79.899 Other long term (current) drug therapy
CPT/HCPCS: 99212

== ENCOUNTER → 2023-11-08 | Outpatient (CLI) | payer BC ==
--- NOTE | 2023-11-08 17:37 | XR ---
EXAMINATION TYPE: XR knee complete LT DATE OF EXAM: 11/08/2023 COMPARISON: None HISTORY: Pain in left knee TECHNIQUE: 3 view left knee FINDINGS: Joint spaces are preserved. No acute fracture or dislocation. No joint effusion is evident. Soft tissues are unremarkable. Follow up exams can be performed 7-10 days from acute trauma for continued pain. IMPRESSION: 1. No acute osseous abnormality left knee.
== END | disposition home or self-care (01) ==
LOC: RADXRMAIN 16:56
PROVIDERS: ATTEND Family Medicine
DX: M25.562 Pain in left knee (principal)

== ENCOUNTER → 2024-08-31 | Outpatient (CLI) | payer BC ==
--- NOTE | 2024-08-31 18:46 | MM ---
Reason for Exam: Screening (asymptomatic). Last screening mammogram was performed 12 month(s) ago. Patient History: Menarche at age 15. Patient has no children. Hysterectomy at age 52. Patient used Hormonal Contraceptives for 16 years. Last menstrual period: Risk Values: Kerri 5 year model risk: 1.1%. NCI Lifetime model risk: 8.8%. Prior Study Comparison: 08/22/2017 Bilateral Screening Mammogram, [facility]. 06/30/2020 Bilateral Screening Mammogram, [facility]. 08/18/2023 Bilateral MG 3D screening mammo w/cad, [facility]. Tissue Density: There are scattered areas of fibroglandular density. Findings: Analyzed By CAD. There is no suspicious group of microcalcifications or new suspicious mass in either breast. Overall Assessment: Negative, BI-RAD 1 Management: Screening Mammogram of both breasts in 1 year. Patient should continue monthly self-breast exams. A clinical breast exam by your physician is recommended on an annual basis. This exam should not preclude additional follow-up of suspicious palpable abnormalities. Note on Kerri scores and lifetime risk: 1. A Kerri score greater than 3% is considered moderate risk. If this is the case, consider specialist referral to assess eligibility for a risk reducing agent. 2. If overall lifetime risk for the development of breast cancer is 20% or higher, the patient may qualify for future screening with alternating mammogram and breast MRI. [facility], , 08/31/2024 6:43 PM. Electronically signed and approved by: Hardy La M.D. Radiologist
== END | disposition home or self-care (01) ==
LOC: RADMAMWWP 15:11
PROVIDERS: ATTEND Family Medicine
DX: Z12.31 Encounter for screening mammogram for malignant neoplasm of breast (principal); R92.323 Mammographic fibroglandular density, bilateral breasts; Z92.0 Personal history of contraception
CPT/HCPCS: 77063; 77067